=== PATIENT | male | born 1965 | race Caucasian/White ===

== ENCOUNTER 2021-04-12 09:11 | Emergency (ER) | payer OTHER ==
[2021-04-12] MEDS ORDERED: IBUPROFEN800 MG PO (12:13)
== END 2021-04-12 11:56 | disposition home or self-care (01) ==
LOC: FER 09:11
DX: S80.11XA Contusion of right lower leg, initial encounter (principal); S50.01XA Contusion of right elbow, initial encounter; W17.89XA Other fall from one level to another, initial encounter; Y92.89 Other specified places as the place of occurrence of the external cause; Y99.0 Civilian activity done for income or pay
CPT/HCPCS: 73080; 73560; 73590